=== PATIENT | male | born 1965 | race American Indian/Alaskan Native ===

== ENCOUNTER 2017-02-18 09:27 | Emergency (ER) | payer MEDICARE ==
[2017-02-18 10:46] LABS: Eosinophils % (Auto) 2.8 % (0.0-4.3); Hematocrit 37.7 % (35.5-45.6); Hemoglobin 12.4 gm/dl (11.8-15.2); Mean Corpuscular HGB Conc 33 % (32-34); Mean Corpuscular Hemoglobin 31 pg (28-32); Mean Corpuscular Volume 94 fl (84-94); Platelet Count 279 K/mm3 (140-440); Red Blood Count 4.03 M/mm3 (3.65-5.03); White Blood Count 6.8 K/mm3 (4.5-11.0)
[2017-02-18 11:22] LABS: Anion Gap 15 mmol/L; BUN/Creatinine Ratio 15.55; Blood Urea Nitrogen 14 mg/dL (9-20); Calcium 9.4 mg/dL (8.4-10.2); Carbon Dioxide 28 mmol/L (22-30); Chloride 101.4 mmol/L (98-107); Glucose 103 mg/dL (75-100); Potassium 3.8 mmol/L (3.6-5.0); Sodium 141 mmol/L (137-145)
--- NOTE | 2017-02-18 16:45 | Emergency Department Report ---
ED General Adult HPI - General Chief complaint: Medical Clearance Stated complaint: FEET SWOLLEN Time Seen by Provider: 02/18/17 16:22 Source: patient Mode of arrival: Ambulatory Limitations: Physical Limitation - History of Present Illness Initial comments: 51 y/o M presents w/ cc of bilat lower extremity swelling, noted 2-3 days ago. Denies chest pain, dyspnea, hemoptysis, respiratory symptoms. Pt has noted over past 2-3 days noted bilat lower extremity swelling but no calf tenderness. Denies fever, recent immobilization, use of hormones, dyspnea, orthopnea, recent trauma. - Related Data Home Medications Medication Instructions Recorded Confirmed Last Taken Aspirin [Adult Low Dose Aspirin EC] 1 tab PO QDAY 02/18/17 02/18/17 Unknown Previous Rx's Medication Instructions Recorded Last Taken Type Furosemide [Lasix] 20 mg PO QDAY PRN #12 tablet 02/18/17 Unknown Rx Allergies Allergy/AdvReac Type Severity Reaction Status Date / Time lisinopril Allergy Angioedema Verified 02/18/17 09:47 ED Review of Systems ROS: Stated complaint: FEET SWOLLEN Other details as noted in HPI Comment: All other systems reviewed and negative Constitutional: denies: chills, fever Eyes: denies: eye pain, eye discharge, vision change ENT: denies: ear pain, throat pain Respiratory: denies: cough, shortness of breath, wheezing Cardiovascular: denies: chest pain, palpitations Endocrine: no symptoms reported Gastrointestinal: denies: abdominal pain, nausea, diarrhea Genitourinary: denies: urgency, dysuria Musculoskeletal: denies: back pain, joint swelling, arthralgia Skin: denies: rash, lesions Neurological: denies: headache, weakness, paresthesias Psychiatric: denies: anxiety, depression Hematological/Lymphatic: denies: easy bleeding, easy bruising ED Past Medical Hx - Past Medical History Previous Medical History?: Yes Hx Hypertension: Yes Additional medical history: BULGING DISC. DEGENERATIVE SPINE. CAROTID ARTERY DISEASE - Surgical History Hx Appendectomy: Yes Additional Surgical History: NECK SURGERY - Social History Smoking Status: Current Some Day Smoker Substance Use Type: None - Medications Home Medications: Home Medications Medication Instructions Recorded Confirmed Last Taken Type Aspirin [Adult Low Dose Aspirin EC] 1 tab PO QDAY 02/18/17 02/18/17 Unknown History Furosemide [Lasix] 20 mg PO QDAY PRN #12 tablet 02/18/17 Unknown Rx ED Physical Exam - General Limitations: Physical Limitation General appearance: alert, in no apparent distress - Head Head exam: Present: atraumatic, normocephalic - Eye Eye exam: Present: normal appearance, PERRL, EOMI Pupils: Present: normal accommodation - ENT ENT exam: Present: normal exam, normal orophraynx, mucous membranes moist - Neck Neck exam: Present: normal inspection, full ROM - Respiratory Respiratory exam: Present: normal lung sounds bilaterally. Absent: respiratory distress - Cardiovascular Cardiovascular Exam: Present: regular rate, normal rhythm, normal heart sounds. Absent: systolic murmur, diastolic murmur, rubs, gallop - GI/Abdominal GI/Abdominal exam: Present: soft, normal bowel sounds. Absent: tenderness, guarding, rebound - Rectal Rectal exam: Present: deferred - Extremities Exam Extremities exam: Present: normal inspection, full ROM, other (1+ bilat pitting edema bilat to mid gonzalez, no calf tenderness) - Back Exam Back exam: Present: normal inspection - Neurological Exam Neurological exam: Present: alert, oriented X3, CN II-XII intact, normal gait - Psychiatric Psychiatric exam: Present: normal affect, normal mood - Skin Skin exam: Present: warm, dry, intact, normal color. Absent: rash ED Course Vital Signs 02/18/17 09:50 Temperature 98.5 F Pulse Rate 74 Respiratory 18 Rate Blood Pressure 181/100 O2 Sat by Pulse 100 Oximetry ED Medical Decision Making - Lab Data Result diagrams: 02/18/17 10:02 02/18/17 10:02 - Medical Decision Making 51 y/o M w/ bilat lower extremity pitting edema, low risk by Wells, will get ddiemr to r/o. No respiratory symptoms to suggest CHF, PE, BNP at triage negative. EKG: NSR 70, nml axis, non specific biphasic t wave v`, no significant stt changes, qrs 86, qtc 425 Ddimer neg, will trial lasix, supportive care, pt to f/u with PCP tomorrow. Pt given verbal discharge instructions including warnings about medications and return conditions Critical care attestation.: If time is entered above; I have spent that time in minutes in the direct care of this critically ill patient, excluding procedure time. ED Disposition Clinical Impression: Peripheral edema Disposition: DISCHARGED TO HOME OR SELFCARE Is pt being admited?: No Does the pt Need Aspirin: No Condition: Good Instructions: Leg Edema (ED) Prescriptions: Furosemide [Lasix] 20 mg PO QDAY PRN #12 tablet PRN Reason: Edema Referrals: PRIMARY CARE, [Primary Care Provider] - 3-5 Days Time of Disposition: 18:28
[2017-02-18 18:37] VITALS: BP 162/89
== END 2017-02-18 18:30 | disposition home or self-care (01) ==
LOC: ED 09:27
DX: R60.0 Localized edema (principal); I10 Essential (primary) hypertension; F17.200 Nicotine dependence, unspecified, uncomplicated
CPT/HCPCS: 36415; 80048; 83880; 84484; 85025; 85379; 93005; 93010; 99284

== ENCOUNTER 2017-03-09 09:20 | Emergency (ER) | payer MEDICARE ==
[2017-03-09 09:27] VITALS: BP 164/96
--- NOTE | 2017-03-09 10:15 | XRay Report ---
RIGHT SHOULDER RADIOGRAPHS INDICATION: Right shoulder pain, injury. COMPARISON: None similar at this institution. FINDINGS: Frontal and Y views of the right shoulder demonstrate normal glenohumeral articulation appearance. Distal clavicle demonstrates possibly postsurgical attenuation/resection distally and also elevated by approximately 8 mm relative to the acromion. Few coracoclavicular ligament calcifications may be present. Normal imaged right lung and ribs. CONCLUSION: Possible postsurgical appearance of the distal clavicle, noted higher than the acromion/acromioclavicular dislocation and may be chronic. Please also correlate clinically. Thank you for the opportunity to participate in this patient's care.
[2017-03-09] MEDS ORDERED: NORCO 7.5/325 PO ONE (11:28)
[2017-03-09] MEDS ORDERED: TORADOL IM ONE (11:28)
[2017-03-09] MEDS ORDERED: FLEXERIL PO ONE (11:28)
[2017-03-09] MEDS ORDERED: ULTRAM PO ONE (11:54)
--- NOTE | 2017-03-09 12:08 | Emergency Department Report ---
ED Upper Extremity Inj HPI - General Chief Complaint: Shoulder Injury Stated Complaint: R Shoulder Injury Source: patient Mode of arrival: Ambulatory Limitations: No Limitations - History of Present Illness Initial Comments: 51 year old male presents to ED with right shoulder pain. patient states he was doing heavy lifting 2-3 days ago. patient states he has had previous surgery on right shoulder/AC joint. patient is stable, neurologically intact and in no acute distress. MD Complaint: Injury to:: right, shoulder -: Sudden Other Extremity Injury: Shoulder: Right Other Injuries: none Improves With: none Worsens With: immobilization, rest Context: other (heavy lifting) Associated Symptoms: heard/felt popping sensat. denies: weakness, numbness, neck pain, suspects foreign body, nausea/vomiting - Related Data Home Medications Medication Instructions Recorded Confirmed Last Taken Aspirin [Adult Low Dose Aspirin EC] 1 tab PO QDAY 02/18/17 02/18/17 Unknown Previous Rx's Medication Instructions Recorded Last Taken Type Furosemide [Lasix] 20 mg PO QDAY PRN #12 tablet 02/18/17 Unknown Rx Ketorolac [Toradol] 10 mg PO Q6H PRN #20 tablet 03/09/17 Unknown Rx methOCARBAMOL [Robaxin TAB] 500 mg PO BID #20 tab 03/09/17 Unknown Rx Allergies Allergy/AdvReac Type Severity Reaction Status Date / Time lisinopril Allergy Angioedema Verified 02/18/17 09:47 ED Review of Systems ROS: Stated complaint: R Shoulder Injury Other details as noted in HPI Constitutional: denies: chills, fever Eyes: denies: eye pain, eye discharge, vision change ENT: denies: ear pain, throat pain Respiratory: denies: cough, shortness of breath, wheezing Cardiovascular: denies: chest pain, palpitations Endocrine: no symptoms reported Gastrointestinal: denies: abdominal pain, nausea, diarrhea Genitourinary: denies: urgency, dysuria Musculoskeletal: arthralgia. denies: back pain, joint swelling Skin: denies: rash, lesions Neurological: denies: headache, weakness, paresthesias Psychiatric: denies: anxiety, depression Hematological/Lymphatic: denies: easy bleeding, easy bruising ED Past Medical Hx - Past Medical History Previous Medical History?: Yes Hx Hypertension: Yes Additional medical history: BULGING DISC. DEGENERATIVE SPINE. CAROTID ARTERY DISEASE, Right shoulder pain - Surgical History Past Surgical History?: Yes Hx Appendectomy: Yes Additional Surgical History: NECK SURGERY, Right shoulder AC repair - Social History Smoking Status: Current Every Day Smoker Substance Use Type: Prescribed - Medications Home Medications: Home Medications Medication Instructions Recorded Confirmed Last Taken Type Aspirin [Adult Low Dose Aspirin EC] 1 tab PO QDAY 02/18/17 02/18/17 Unknown History Furosemide [Lasix] 20 mg PO QDAY PRN #12 tablet 02/18/17 Unknown Rx Ketorolac [Toradol] 10 mg PO Q6H PRN #20 tablet 03/09/17 Unknown Rx methOCARBAMOL [Robaxin TAB] 500 mg PO BID #20 tab 03/09/17 Unknown Rx ED Physical Exam - General Limitations: No Limitations General appearance: alert, in no apparent distress - Head Head exam: Present: atraumatic, normocephalic - Eye Eye exam: Present: normal appearance - ENT ENT exam: Present: mucous membranes moist - Neck Neck exam: Present: normal inspection, full ROM. Absent: tenderness - Respiratory Respiratory exam: Present: normal lung sounds bilaterally. Absent: respiratory distress, wheezes - Cardiovascular Cardiovascular Exam: Present: regular rate, normal rhythm. Absent: systolic murmur, diastolic murmur, rubs, gallop - GI/Abdominal GI/Abdominal exam: Present: soft, normal bowel sounds - Rectal Rectal exam: Present: deferred - Extremities Exam Extremities exam: Present: normal inspection - Expanded Upper Extremity Exam Right General: Present: normal inspection Shoulder Exam: Present: full ROM, tenderness, tenderness over AC joint, other ( normal radial pulses bilaterally, normal sensation in upper extremeties bilaterally). Absent: abrasion, laceration, ecchymosis, erythema Upper Arm exam: Present: normal inspection, full ROM Elbow exam: Present: normal inspection, full ROM Forearm Wrist exam: Present: normal inspection, full ROM Hand Wrist exam: Present: normal inspection, full ROM Vascular: Present: normal capillary refill, radial pulse - Back Exam Back exam: Present: normal inspection, full ROM - Neurological Exam Neurological exam: Present: alert, oriented X3, normal gait - Psychiatric Psychiatric exam: Present: normal affect, normal mood - Skin Skin exam: Present: warm, dry, intact, normal color. Absent: rash ED Course Vital Signs 03/09/17 09:23 Temperature 98.4 F Pulse Rate 66 Respiratory 18 Rate Blood Pressure 164/96 O2 Sat by Pulse 100 Oximetry ED Medical Decision Making - Radiology Data Radiology results: report reviewed right shoulder xray Possible postsurgical appearance of the distal clavicle, noted higher than the acromion/acromioclavicular dislocation and may be chronic. - Medical Decision Making 51 year old male presents to ED with shoulder pain after heavy lifting. patient was given IM toradol and sling for right arm and understands he needs to follow up with ORTHO referral (Dr. antonio or Dr. Ernandez) today after leaving ED for further evaluation. Critical care attestation.: If time is entered above; I have spent that time in minutes in the direct care of this critically ill patient, excluding procedure time. ED Disposition Clinical Impression: Shoulder disorder Disposition: DISCHARGED TO HOME OR SELFCARE Is pt being admited?: No Does the pt Need Aspirin: No Condition: Stable Instructions: Shoulder Sprain (ED) Prescriptions: Ketorolac [Toradol] 10 mg PO Q6H PRN #20 tablet PRN Reason: Pain methOCARBAMOL [Robaxin TAB] 500 mg PO BID #20 tab Referrals: PRIMARY CAREMD [Primary Care Provider] - 3-5 Days NARAYAN ERNANDEZ MD [Staff Physician] - 03/09/17 12:05 pm HALIE ANTONIO MD [Staff Physician] - 03/09/17 12:05 pm Forms: Work/School Release Form(ED)
== END 2017-03-09 12:25 | disposition home or self-care (01) ==
LOC: ED 09:20
DX: M25.811 Other specified joint disorders, right shoulder (principal); M25.511 Pain in right shoulder; I10 Essential (primary) hypertension; F17.200 Nicotine dependence, unspecified, uncomplicated; Z88.8 Allergy status to other drugs, medicaments and biological substances; X50.0XXA Overexertion from strenuous movement or load, initial encounter; Y93.89 Activity, other specified; Y99.8 Other external cause status; Y92.89 Other specified places as the place of occurrence of the external cause
CPT/HCPCS: 73030; 96372; 99284; J1885

== ENCOUNTER 2017-06-06 10:48 | Emergency (ER) | payer MEDICARE | END 2017-06-06 17:16 | disposition left against medical advice (07) | LOC: ED 10:48 | DX: H92.02 Otalgia, left ear (principal); Z53.21 Procedure and treatment not carried out due to patient leaving prior to being seen by health care provider ==

== ENCOUNTER 2017-06-08 09:05 | Emergency (ER) | payer MEDICARE ==
[2017-06-08] MEDS ORDERED: HYDROGEN PEROXIDE TP ONE (09:35)
[2017-06-08 09:48] VITALS: BP 169/86
--- NOTE | 2017-06-08 18:43 | Emergency Department Report ---
Entered by JENNIFER NIETO, acting as scribe for DIANE ESPARZA NP. ED ENT HPI - General Chief complaint: Earache Stated complaint: LEFT EARACHE Time Seen by Provider: 06/08/17 09:15 Source: patient Mode of arrival: Ambulatory Limitations: Physical Limitation - History of Present Illness Initial comments: This is a 51 y/o male, nontoxic, well nourished in appearance, no acute signs of distress with a PMHx of HTN and carotid artery disease presents with left ear pain that began 1 week ago. Rates pain a 7/10 in severity, which he describes as throbbing in quality. Aggravated with nothing and alleviated with nothing. Denies left ear trauma/injury, rhinorrhea, congestion, ear drainage, hearing loss, sore throat, fever, chills, chest pain, SOB, IBARRA or dizziness, numbness, and tingling. Patient stated has this as a chronic problem that he sees provider for wax impaction. Notes he attempted to clean his left ear with a cotton swab with no relief. Allergic to lisinopril. MD complaint: ear pain Onset/Timin -: week(s) Location: L ear Severity: moderate Severity scale (0 -10): 7 Quality: other (throbbing) Consistency: constant Improves with: none Worsens with: none Associated Symptoms: denies: fever, cough, gum swelling, toothache, pain with swallowing, sore throat, tinnitus, hearing loss, discharge from ear, rhinorrhea - Related Data Home Medications Medication Instructions Recorded Confirmed Last Taken Aspirin [Adult Low Dose Aspirin EC] 1 tab PO QDAY 02/18/17 02/18/17 Unknown Previous Rx's Medication Instructions Recorded Last Taken Type Furosemide [Lasix] 20 mg PO QDAY PRN #12 tablet 02/18/17 Unknown Rx Ketorolac [Toradol] 10 mg PO Q6H PRN #20 tablet 03/09/17 Unknown Rx methOCARBAMOL [Robaxin TAB] 500 mg PO BID #20 tab 03/09/17 Unknown Rx Amoxicillin 500 mg PO BID #20 capsule 06/08/17 Unknown Rx Allergies Allergy/AdvReac Type Severity Reaction Status Date / Time lisinopril Allergy Angioedema Verified 02/18/17 09:47 ED Dental HPI - General Chief complaint: Earache Stated complaint: LEFT EARACHE Time Seen by Provider: 06/08/17 09:15 Source: patient Mode of arrival: Ambulatory Limitations: Physical Limitation - History of Present Illness MD complaint: ear pain Onset/Timin -: week(s) Severity: moderate Quality: other (throbbing) Consistency: constant Improves with: none Worsens with: none Dental Associated Symptons: Yes: Earache. No: Headache, Sore Throat, Gum Swelling, Fever - Related Data Home Medications Medication Instructions Recorded Confirmed Last Taken Aspirin [Adult Low Dose Aspirin EC] 1 tab PO QDAY 02/18/17 02/18/17 Unknown Previous Rx's Medication Instructions Recorded Last Taken Type Furosemide [Lasix] 20 mg PO QDAY PRN #12 tablet 02/18/17 Unknown Rx Ketorolac [Toradol] 10 mg PO Q6H PRN #20 tablet 03/09/17 Unknown Rx methOCARBAMOL [Robaxin TAB] 500 mg PO BID #20 tab 03/09/17 Unknown Rx Amoxicillin 500 mg PO BID #20 capsule 06/08/17 Unknown Rx Allergies Allergy/AdvReac Type Severity Reaction Status Date / Time lisinopril Allergy Angioedema Verified 02/18/17 09:47 ED Review of Systems Comment: All other systems reviewed and negative Constitutional: denies: chills, fever Eyes: denies: eye pain, eye discharge, vision change ENT: ear pain (LT). denies: throat pain, dental pain, hearing loss, epistaxis, congestion Respiratory: denies: cough, orthopnea, shortness of breath, SOB with exertion, SOB at rest, stridor, wheezing Cardiovascular: denies: chest pain, palpitations, dyspnea on exertion, orthopnea , edema, syncope, paroxysmal nocturnal dyspnea Endocrine: no symptoms reported Gastrointestinal: denies: abdominal pain, nausea, vomiting, diarrhea Genitourinary: denies: urgency, dysuria Musculoskeletal: denies: back pain, joint swelling, arthralgia Skin: denies: rash, lesions Neurological: denies: headache, weakness, paresthesias Psychiatric: denies: anxiety, depression Hematological/Lymphatic: denies: easy bleeding, easy bruising ED Past Medical Hx - Past Medical History Previous Medical History?: Yes Hx Hypertension: Yes Additional medical history: BULGING DISC. DEGENERATIVE SPINE. CAROTID ARTERY DISEASE, Right shoulder pain - Surgical History Past Surgical History?: Yes Hx Appendectomy: Yes Additional Surgical History: NECK SURGERY, Right shoulder AC repair - Family History Family history: no significant - Social History Smoking Status: Never Smoker Substance Use Type: None - Medications Home Medications: Home Medications Medication Instructions Recorded Confirmed Last Taken Type Aspirin [Adult Low Dose Aspirin EC] 1 tab PO QDAY 02/18/17 02/18/17 Unknown History Furosemide [Lasix] 20 mg PO QDAY PRN #12 tablet 02/18/17 Unknown Rx Ketorolac [Toradol] 10 mg PO Q6H PRN #20 tablet 03/09/17 Unknown Rx methOCARBAMOL [Robaxin TAB] 500 mg PO BID #20 tab 03/09/17 Unknown Rx Amoxicillin 500 mg PO BID #20 capsule 06/08/17 Unknown Rx ED Physical Exam - General Limitations: Physical Limitation General appearance: alert, in no apparent distress - Head Head exam: Present: atraumatic, normocephalic - Eye Eye exam: Present: normal appearance, PERRL, EOMI Pupils: Present: normal accommodation - ENT ENT exam: Present: normal orophraynx, mucous membranes moist, normal external ear exam, other (no mastoid tenderness present). Absent: normal exam, TM's normal bilaterally - Expanded ENT Exam Expanded Ear exam: Present: normal external inspection TM/Canal exam: Cerumen Impaction: Right TM, Left TM Mouth exam: Present: normal external inspection, tongue normal. Absent: drooling, trismus, muffled voice, tongue elevation, laceration Teeth exam: Present: normal inspection Throat exam: Positive: normal inspection. Negative: tonsillar erythema, tonsillomegaly, tonsillar exudate, R peritonsillar mass, L peritonsillar mass - Neck Neck exam: Present: normal inspection, full ROM. Absent: tenderness, meningismus, lymphadenopathy, thyromegaly - Respiratory Respiratory exam: Present: normal lung sounds bilaterally. Absent: respiratory distress, wheezes, rales, rhonchi, stridor, chest wall tenderness, accessory muscle use, decreased breath sounds, prolonged expiratory - Cardiovascular Cardiovascular Exam: Present: regular rate, normal rhythm, normal heart sounds. Absent: bradycardia, tachycardia, irregular rhythm, systolic murmur, diastolic murmur, rubs, gallop - GI/Abdominal GI/Abdominal exam: Present: soft, normal bowel sounds. Absent: distended, tenderness, guarding, rebound, rigid - Rectal Rectal exam: Present: deferred - Extremities Exam Extremities exam: Present: normal inspection, full ROM, normal capillary refill. Absent: tenderness, pedal edema, joint swelling, calf tenderness - Back Exam Back exam: Present: normal inspection, full ROM. Absent: tenderness, CVA tenderness (R), CVA tenderness (L), muscle spasm, paraspinal tenderness, vertebral tenderness, rash noted - Neurological Exam Neurological exam: Present: alert, oriented X3, CN II-XII intact, normal gait, reflexes normal. Absent: motor sensory deficit - Psychiatric Psychiatric exam: Present: normal affect, normal mood - Skin Skin exam: Present: warm, dry, intact. Absent: rash ED Course Vital Signs 06/08/17 06/08/17 09:08 09:47 Temperature 98.6 F Pulse Rate 69 79 Respiratory 16 18 Rate Blood Pressure 185/97 Blood Pressure 169/86 [Right] O2 Sat by Pulse 100 100 Oximetry - Reevaluation(s) Reevaluation #1: 06/08/17 10:02 Patient is speaking in full sentences with no signs of distress noted. ED Medical Decision Making - Medical Decision Making 51-year-old male the bilateral cerumen impaction. I used a warm water and hydroperoxide 50-50 and removed bilateral ear wax from both ears with wax curet. Patient Tolerated well. There is no signs of any bulging TMs or erythema. No signs of distress noted. Patient was notified to follow up with a primary care doctor in 3-5 days or if symptoms worsen or continue presents to emergency room as soon as possible. At time time of discharge, the patient does not seem toxic or ill in appearance. No acute signs of distress noted. Patient agrees to discharge treatment plan of care. No further questions noted by the patient. ED Disposition Clinical Impression: Impacted ear wax Disposition: DC-01 TO HOME OR SELFCARE Is pt being admited?: No Does the pt Need Aspirin: No Condition: Stable Instructions: Cerumen Impaction (ED), Amoxicillin (By mouth) Additional Instructions: follow up with a primary care doctor in 3-5 days or if symptoms worsen or continue presents to emergency room as soon as possible. Prescriptions: Amoxicillin 500 mg PO BID #20 capsule Referrals: PRIMARY CARE, [Primary Care Provider] - 3-5 Days JORGE L DAILEY MD [Staff Physician] - 3-5 Days [facility] [Outside] - 3-5 Days [facility] [Outside] - 3-5 Days Forms: Work/School Release Form(ED) This documentation as recorded by the GERSON da silva JASMINE,accurately reflects the service I personally performed and the decisions made by ,DIANE ESPARZA, [employer] EXAMINER.
== END 2017-06-08 11:45 | disposition home or self-care (01) ==
LOC: ED 09:05
DX: H61.23 Impacted cerumen, bilateral (principal); I10 Essential (primary) hypertension; Z79.82 Long term (current) use of aspirin; Z88.8 Allergy status to other drugs, medicaments and biological substances
CPT/HCPCS: 99282

== ENCOUNTER 2017-06-26 09:03 | Outpatient (CLI) | payer MEDICARE ==
--- NOTE | 2017-06-26 11:08 | XRay Report ---
CHEST 2 VIEWS INDICATION: Positive TB skin test. Major depressive disorder. COMPARISON: None similar. FINDINGS: PA and lateral chest radiographs demonstrate normal cardiomediastinal silhouette. Clear lungs. Intact bones. CONCLUSION: No acute disease in the chest. Thank you for the opportunity to participate in this patient's care.
== END 2017-06-26 09:04 | disposition home or self-care (01) ==
LOC: XRAY 09:03
PROVIDERS: ATTEND Psychiatry & Neurology Psychiatry
DX: F33.2 Major depressive disorder, recurrent severe without psychotic features (principal); R76.11 Nonspecific reaction to tuberculin skin test without active tuberculosis
CPT/HCPCS: 71020